=== PATIENT | female | born 1970 | race Caucasian/White ===

== ENCOUNTER → 2019-04-05 | Outpatient (CLI) | payer OTHER, SELFPAY ==
--- NOTE | 2019-04-05 14:30 | EMB_PTH ---
PATIENT: UMU CALDERÓN LOC: [facility] U#:[id number] AGE/SX: 48/F ROOM: RE04/05/[address]: Dr. Ziyad Fuentes MD : [id number] BED: DIS: 04/05/2019 SPEC #: [id number] RECD: 04/05/19 17:23 STATUS: DORINDA JOSE #: [id number] LAWRENCE: 04/05/19 14:[address]: Ziyad Fuentes DEPT: SURGICAL PATHOLOGY RECD BY: Sravan Benitez Tissues: Endometrium, NOS Procedures: Surgery Specimen Level IV HEADER OPERATION: Endometrial biopsy PRE-OP DIAGNOSIS: N95.0 TISSUE SUBMITTED: Endometrial biopsy MICROSCOPIC DIAGNOSIS Endometrial biopsy: Disordered proliferative endometrium. BINTA:nazario 04/07/19 MICROSCOPIC DESCRIPTION Slides are reviewed. GROSS DESCRIPTION Received in fixative is one container labeled with the patient's name and designated EM biopsy. The specimen consists of multiple fragments of beatty hemorrhagic soft tissue that in aggregate measure 2.5 x 0.5 x 0.1 cm. The specimen is totally submitted in one cassette. / BINTA:nazario 04/06/19 TC:5 CPT: 47510
[2019-04-11 17:09] LABS: HPV APTIMA, High Risk Negative (Negative); HPV Reflexed? NOT INDICATED
== END | disposition home or self-care (01) ==
PROVIDERS: Referring Provider Obstetrics & Gynecology; Visit Provider Obstetrics & Gynecology
DX: N85.8 Other specified noninflammatory disorders of uterus (principal); N95.0 Postmenopausal bleeding; Z12.4 Encounter for screening for malignant neoplasm of cervix
CPT/HCPCS: 88175; 88305; G0145

== ENCOUNTER → 2022-12-02 | Outpatient (CLI) | payer OTHER, SELFPAY ==
--- NOTE | 2022-12-02 07:00 | MRI_ITS ---
STUDY: MRI LEFT KNEE REASON FOR EXAM: Female, 52 years old. Left knee medial meniscus tear. TECHNIQUE: Standardized fat and water weighted pulse sequences were obtained in all 3 orthogonal planes. COMPARISON: None. FINDINGS: There is a tear of the posterior medial meniscal root (sagittal PD series 5 images 25-26). There is a small horizontal-oblique undersurface tear of the posterior horn of the medial meniscus (sagittal PD series 5 image 33). There is degenerative arthrosis of the medial femorotibial compartment with joint space narrowing, tiny marginal osteophyte formation, high-grade chondromalacia, and subchondral marrow edema on both sides of the knee. There is a mild grade I MCL sprain with periligamentous edema (coronal T2 series 7 images 13-16). Normal distal semimembranosus, gracilis and semitendinosus tendons. Normal lateral meniscus. Normal hyaline cartilage of the lateral femorotibial compartment. Normal lateral femoral condyle and tibial plateau. Normal proximal tibiofibular articulation. Normal lateral collateral (fibular) ligament. Normal popliteus tendon. Normal biceps femoris tendon. Normal anterior cruciate ligament (ACL). Normal posterior cruciate ligament (PCL). There is moderate to high-grade chondromalacia along the patellar apex and medial patellar facet, with underlying subchondral marrow edema. Congruent patellofemoral articulation. Normal medial and lateral patellar retinaculum. Normal quadriceps tendon. Normal patellar tendon. Normal Hoffa''s fat pad. There is a small to moderate volume joint effusion. There is a small popliteal cyst. There is mild subcutaneous soft tissue edema along the anterior aspect of the knee. There is no acute fracture. MRI/Lower Ext Joint Only (Routine) IMPRESSION: Tear of the posterior medial meniscal root. Small horizontal-oblique undersurface tear of the posterior horn of the medial meniscus. 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 Mild grade I MCL sprain. Small to moderate joint effusion. Small popliteal cyst. Mild subcutaneous soft tissue edema along the anterior aspect of the knee. Electronically Signed: Hussain Javier MD at 12:12 EDT ,
== END | disposition home or self-care (01) ==
PROVIDERS: PCP Nurse Practitioner Family; Referring Provider Chiropractor; Visit Provider Chiropractor
DX: S83.242A Other tear of medial meniscus, current injury, left knee, initial encounter (principal)
CPT/HCPCS: 73721

== ENCOUNTER → 2023-12-07 | Outpatient (CLI) | payer OTHER, SELFPAY ==
--- OUTSIDE RECORDS SUMMARY | 2023-12-07 06:59 | XMS RPT_ITS | CCD ---
Author Organization [facility] Inform ion Partnership [facility] Care Team Providers Care Vamp Throater Name Role Phone Keily Ding LPN Unavailable Keily Ding LPN Unavailable Unavailable Primary Care Provider UnavailADIS Wiley Referring Unavailable ALYCE GAGNON CORRUGATED BOX MACHINE OPERATOR Attending Unavailable ALYCE GAGNON NP Consulting Unavailable ALYCE GAGNON CORRUGATED BOX MACHINE OPERATOR Primary Care Unavailable ALYCE GAGNON CORRUGATED BOX MACHINE OPERATOR Admitting Unavailable PROVIDER, UNKNOWN Consulting Unavailable Unavailable Primary Care Provider Unavailabl e Medications Current Medications Medication Drug Class(es) Dates Sig (Normalized) Sig (Original) predniSONE 10 mg oral tablet (1 source) Start: 08-11-2021 End: 08-23-2021 predniSONE (DELTASONE) 10 mg tablet Indications: Rhus dermatitis Take 6 tabs for 3 days, then 4 tabs for 3 days, then 2 tabs for 3 days then 1 tab for 3 days with food. 39 tablet 0 08/11/2021 08/23/2021 Active Comment on above: Take 6 tabs for 3 da ys, then 4 tabs for 3 days, then 2 tabs for 3 days then 1 tab for 3 days with food. Completed/Discontinued Medications Medication Drug Class(es) Dates Sig (Normalized) Sig (Original) BIO CLEANSE (2 sources) Start: 7 BIO CLEANSE as directed BIO CLEANSE Ramone PALOMINO doxycycline hyclate 100 mg oral capsule (2 sources) Tetracycline-class Drug Start: End: DOXYCYCLINE HYCLATE 100 MG CAPS Take 1 tablet twice daily DOXYCYCLINE HYCLATE [id number] Ramone PALOMINO METHYLPREDNISOLONE (2 sources) Corticosteroid Start: 7 End: 7 MEDROL 4 MG TBPK Take as directed METHYLPREDNISOLONE [id number] Ramone PALOMINO MULTIPLE VITAMINS-MINERALS (2 sources) Start: 7 HAIR SKIN NAILS CAPS as directed MULTIPLE VITAMINS-MINERALS [id number] Ramone PALOMINO MULTIPLE VITAMINS-MINERALS (2 sources) Start: 7 MULTIVITAMIN ADULTS TABS as directed MULTIPLE VITAMINS-MINERALS [id number] Ramone PALOMINO vitamin b 12 0.1 mg oral tablet (2 sources) Vitamin B12 Start: 7 VITAMIN B-12 100 MCG TABS as directed CYANOCOBALAMIN 60322940721 Ramone PALOMINO Problems Active Problems Problem Classification Problem Date Documented Da te Episodic/Chronic Allergic reactions (1 source) Contact dermatitis due to Genus Toxicodendron; Translations: [Unspecified contact dermatitis due to plants, except food] Episodic Other connective tissue disease (1 source) Pain in left finger(s); Translations: [Thumb pain, left] Onset: 09-09-2022 Episodic Other connective tissue disease (1 source) Pain in left thumb; Translations: [Pain in left finger(s)] 09-09-2022 Episodic Past or Other Problems Problem Classification Problem Date Documented Da te Episodic/Chronic Other injuries and conditions due to external causes (2 sources) Insect bite - wound; Translations: [Other injury of unspecified body region] Onset: 09-13-2016 09-13-2016 Episodic Skin and subcutaneous tissue infections (2 sources) Cellulitis; Translations: [Cellulitis, unspecified] Onset: 09-13-2016 09-13-2016 Episodic Results Test Name Value Interpretation Reference Range Facil ity 3D MAMM BILAT SCREENon 11-23 3D MAMM BILAT SCREEN [place] [address] Patient: KANDICE CALDERÓN Phone#: : [phone] Age: 52 Gender: F Pt. Type: Out Account: [id number] Location: 2 Ordering: ALYCE GAGNON Exam Date: 11/23/2022/7:56 Family Phys: Charge Code: [id number] Physician: [place] Order #: [id number] Dose#: PROCEDURE: BILATERAL SCREENING BREAST TOMOSYNTHESIS MAMMOGRAM WITH CAD COMPARISON: [facility], BILAT SCREENING, 02/20/2020, 8:20. [facility], 3D BILAT SCREEN, 10/29/2021, 14:50. INDICATIONS: Screening. BREAST COMPOSITION: Scattered areas fibroglandular density. FINDINGS: DIAGNOSTIC CATEGORY 1--NEGATIVE NO CHANGE FROM COMPARISON ASSESSMENT. RIGHT BREAST: No significant suspicious finding. No significant change has occurred. LEFT BREAST: No significant suspicious finding. No significant change has occurred. RECOMMENDATIONS: ROUTINE MAMMOGRAM AND CLINICAL EVALUATION IN 12 MONTHS. PLEASE NOTE: A NORMAL MAMMOGRAM DOES NOT EXCLUDE THE POSSIBILITY OF BREAST CANCER. A CLINICALLY SUSPICIOUS PALPABLE LUMP SHOULD BE BIOPSIED. THIS FACILITY UTILIZES A REMINDER SYSTEM TO ENSURE THAT ALL PATIENTS RECEIVE REMINDER LETTERS FOR APPOINTMENTS. THIS INCLUDES REMINDERS FOR ROUTINE MAMMOGRAMS, DIAGNOSITC MAMMOGRAMS, OR OTHER BREAST IMAGING INTERVENTIONS WHEN APPROPRIATE. THIS PATIENT WILL BE PLACED IN THE APPROPRIATE REMINDER SYSTEM. Dictated by: Eufemia Kaplan MD on 11/23/2022 at 9:48 Approved by: Eufemia Kaplan MD on 11/23/2022 at 10:06 [facility] CNOVon 09-09-2022 CN Office Visit (UCWSTR ) KANDICE CALDERÓN ([id number]) 1970 F Date Time Provider Department 09/09/22 3:30 PM ADIS LANDRY [facility] During your visit today, we recorded the following information about you: Temperature Pulse Respiration Blood pressure 98.1 degrees 70/minute 21/minute 138/92 Weight 94.3 kg Adis Landry MD 09/09/2022 4:42 PM Signed Patient presents with: Trauma: Smashed left thumb in car door this morning HPI: Left thumb pain: Duration: Smashed left thumb in car door this morning Location: Cut left top of the thumb near the nail, tender distal part of the thumb Character: sharp if squeezed Radiation: No. Aggravating: touching, no pain with ROM Relieving: Associated: bruise in thumb pad, cut Pertinent negatives: Denies numbness Tetanus booster 2020. MEDICATIONS: No prescriptions on file. ALLERGIES: ALLERGIES No Known Allergies VITALS: BP 138/92 Pulse 70 Temp 36.7 ?C (98.1 ?F) Resp 21 Wt 94.3 kg (207 lb 12.8 oz) LMP 08/14/2014 SpO2 100% PE: Pleasant, in no acute distress. Accompanied by her . Right hand dominant. Thumb: left. 3mm and 5mm lacerations 1mm proximal to the proximal nail fold. Mild ecchymosis of the thumb pad without edema. Full IP joint ROM, non-tender to palpation. ASSESSMENT/PLAN: 1. Laceration of left thumb without foreign body without damage to nail, initial encounter - ICD9: 883.0, ICD10: S61.012A (primary diagnosis) 2. Thumb pain, left - ICD9: 729.5, ICD10: M79.645 - XR DIGIT GENERAL 3V FRONTAL/LAT/OBL LEFT - no fracture. Laceration is not in need of or amenable to suture. Wound cleansed with hibiclens and water and dressed with bacitracin on an adhesive bandage. Alluminum foam finger tip splint applied. Follow up with signs of infection such as increasing redness, pain, swelling, purulent drainage, or fever/malaise. Adis Landry MD Referring Provider: SELF [200] Allergies As of Date: 09/09/2022 (No Known Allergies) Date Reviewed: 09/09/2022 Reviewed by: Catherine Torres MA - Fully Assessed Reason for Visit: Trauma [112] Cmt: Smashed left thumb in car door this morning Primary Visit Diagnosis:Laceration of left thumb without foreign body without damage to nail, initial encounter [S61.012A] Other Visit Diagnosis:Thumb pain, left [M79.645] Order(s):XR DIGIT GENERAL 3V FRONTAL/LAT/OBL LEFT [[id number]] Order #: [id number] FUTURE Problem List As Of Date: 09/09/2022 (None) Encounter Status:Closed by ADIS LANDRY on 09/09/[address] [facility] XR DIGIT 3V FRONTAL/LAT/OBL LTon 09-09-2022 XR DIGIT 3V FRONTAL/LAT/OBL LT * * *Final Report* * * DATE OF EXAM: Sep 09 2022 4:09PM WOX [id number] - XR DIGIT 3V FRONTAL/LAT/OBL LT / PROCEDURE REASON: Thumb pain, left * * * * Physician Interpretation * * * * EXAMINATION: XR DIGIT 3V FRONTAL/LAT/OBL LT CLINICAL HISTORY: Pain Technique: XR DIGIT 3V FRONTAL/LAT/OBL LT -- LEFT with 3 views on 3 images Comparison: None RESULT: No acute fracture or dislocation. Left first carpometacarpal joint space narrowing with marginal osteophytes. IMPRESSION: No acute osseous abnormality Fence Erector: PSCB Transcribe Date/Time: Sep 09 2022 4:10P Dictated by : HUMBEROT HENAO MD This examination was interpreted and the report reviewed and electronically signed by: HUMBERTO HENAO MD on Sep 09 2022 4:10PM EST [id number] Normal [facility] XR Finger - left AP and Late ral and obliqueon 09-09-2022 IMPRESSION: No acute osseous abnormality Fence Erector: PSCB Transcribe Date/Time: Sep 09 2022 4:10P Dictated by : HUMBERTO HENAO MD This examination was interpreted and the report reviewed and electronically signed by: HUMBERTO HENAO MD on Sep 09 2022 4:10PM EST DIVISION OF RADIOLOGY * * *Final Report* * * DATE OF EXAM: Sep 09 2022 4:09PM WOX [id number] - XR DIGIT 3V FRONTAL/LAT/OBL LT / PROCEDURE REASON: Thumb pain, left * * * * Physician Interpretation * * * * EXAMINATION: XR DIGIT 3V FRONTAL/LAT/OBL LT CLINICAL HISTORY: Pain Technique: XR DIGIT 3V FRONTAL/LAT/OBL LT -- LEFT with 3 views on 3 images Comparison: None RESULT: No acute fracture or dislocation. Left first carpometacarpal joint space narrowing with marginal osteophytes. DIVISION OF RADIOLOGY Provider, Jeet mena [place] - 09/09/2022 * * *Final Report* * * DATE OF EXAM: Sep 09 2022 4:09PM WOX [id number] - XR DIGIT 3V FRONTAL/LAT/OBL LT / PROCEDURE REASON: Thumb pain, left * * * * Physician Interpretation * * * * EXAMINATION: XR DIGIT 3V FRONTAL/LAT/OBL LT CLINICAL HISTORY: Pain Technique: XR DIGIT 3V FRONTAL/LAT/OBL LT -- LEFT with 3 views on 3 images Comparison: None RESULT: No acute fracture or dislocation. Left first carpometacarpal joint space narrowing with marginal osteophytes. IMPRESSION IMPRESSION: No acute osseous abnormality Fence Erector: NELY Transcribe Date/Time: Sep 09 2022 4:10P Dictated by : HUMBERTO HENAO MD This examination was interpreted and the report reviewed and electronically signed by: HUMBERTO HENAO MD on Sep 09 2022 4:10PM EST [facility] Radiology Study observation (narrative) [facility] XR Finger - left AP and Late ral and obliqueOrdered By: Ccf Provider on 09-09-2022 [facility] ESTRONE BLDon 10-24-2021 ESTRONE 13.5 pg/mL Normal [facility] Comment on above: Order Comment: Speci men Type: BLOOD SPECIMEN Ordering Facility: [facility] Address: [address] [place] [address] Result Comment: REFE RENCE INTERVAL: Estrone by [employer] Machine Mechanic Pre-menopausal: Early follicular <150.0 pg/mL Pre-menopausal: Late follicular 100.0-250.0 pg/mL Pre-menopausal: Luteal <200.0 pg/mL Post-menopausal 3.0-32.0 pg/mL INTERPRETIVE INFORMATION: Estrone by [employer] Machine Mechanic For a complete set of all established reference intervals, refer to bettercodes.org.[employer]/Tests/Pub/[email or web address]. This test was developed and its performance characteristics determined by [facility]. It has not been cleared or approved by the US Food and Drug Administration. This test was performed in a CLIA certified laboratory and is intended for clinical purposes. Performed By: [facility] [address] [place], [place] [id number] Refractive Surgeon: Amanuel Caal MD, PhD Performed By: #### E ST #### [facility] CLIA [id number] [address] [place] [address] #### 94941-1, 8 #### [facility] CLIA [id number] [address] [place] [address] [place] HbA1c (Bld)on 10-24-2021 Average glucose Estimated from glycated hemoglobin (Bld) [Mass/Vol] 91 mg/dL Normal [facility] Comment on above: Order Comment: Specemile men Type: BLOOD SPECIMEN Ordering Facility: [facility] Address: [address] [place] [address] Result Comment: eAG: (Estimated average glucose) is a calculated value from HgbA1c and is correspondence representative of the average blood glucose level in the last 2-3 month period. Performed By: #### E ST #### [facility] IA [id number] [address] [place] [address] #### 06409-9, 8 #### [facility] [place] [id number] [address] [place] [address] [place] HbA1c (Bld) [Mass fraction] 4.8 % Normal 4.3-5.[address] [facility] Comment on above: Order Comment: Juliocesari men Type: BLOOD SPECIMEN Ordering Facility: [facility] Address: [address] [place] [address] Result Comment: Amer [place] Diabetes Association guidelines indicate that patients with HgbA1c in the range 5.7-6.4% are at increased risk for development of diabetes, and intervention by lifestyle modification may be beneficial. HgbA1c greater or equal to 6.5% is considered diagnostic of diabetes. Performed By: #### E ST #### [facility] CLIA [id number] [address] [place] [address] #### 92573-9, 298-8 #### [facility] CLIA [id number] [address] [place] [address] [place] Testost SerPl-mCncon 022 Testosterone [Mass/Vol] 14 ng/dL Normal <[address] [facility] Comment on above: Order Comment: Speci men Type: BLOOD SPECIMEN Ordering Facility: [facility] Address: [address] [place] [address] Performed By: #### E ST #### [facility] CLIA [id number] [address] [place] [address] #### 30389-4, 2986-8 #### [facility] CLIA [id number] [address] [place] [address] [place] Office Visit: UC: Bug bite, not feeling wellon 09-13-2016 Protein mass conc Done [facility] Work Phone: Tobacco smoking status NHIS Never [facility] Work Phone: Tobacco smoking status ALIS Never smoker [facility] Work Phone: Vital Signs Date Time Vital Sign Value Performing Clinician Jodie casarez 08-11-2021 07:25-0400 Body temperature 98.2 [degF] Evelina Bogner PA-C Work Phone: [facility] 08-11-2021 07:25-0400 Body weight 85.73 kg Evelina Bogner PA-C Work Phone: [facility] 08-11-2021 07:25-0400 Diastolic blood pressure 88 mm[Hg] Evelina Bogner PA-C Work Phone: [facility] 08-11-2021 07:25-0400 Heart rate 88 /min Evelina Bogner PA-C Work Phone: [facility] 08-11-2021 07:25-0400 Respiratory rate 16 /min Evelina Bogner PA-C Work Phone: [facility] 08-11-2021 07:25-0400 SaO2% (BldA) [Mass fraction] 99 % Evelina Bogner PA-C Work Phone: [facility] 08-11-2021 07:25-0400 Systolic blood pressure 132 mm[Hg] Evelina Mathews PA-C Work Phone: [facility] 09-13-2016 10:36-0400 BMI (Body Mass Index) 29.05 kg/m2 Keily Ding LPN [facility] Work Phone: 09-13-2016 10:36-0400 Body Temperature 97.7 [degF] Keily Ding LPN [facility] Work Phone: 09-13-2016 10:36-0400 BP Diastolic 84 mm[Hg] Keily Ding LPN [facility] Work Phone: 09-13-2016 10:36-0400 BP Systolic 128 mm[Hg] Keily Ding LPN [facility] Work Phone: 09-13-2016 10:36-0400 Height 167.64 cm Keily Ding LPN [facility] Work Phone: 09-13-2016 10:36-0400 Pulse (Heart Rate) 95 /min Keily Ding LPN [facility] Work Phone: 09-13-2016 10:36-0400 Respiratory Rate 14 /min Keily Ding LPN [facility] Work Phone: 09-13-2016 10:36-0400 Weight 81.65 kg Keily Ding LPN [facility] Work Phone: Encounters Encounter Date Encounter Type Care Provider Facility Start: 11-23-2022 End: 11-23-2022 ambulatory ALYCE SABA [facility] Start: 09-09-2022 End: 09-09-2022 ambulatory ADIS LANDRY Facility:[facility] Start: 09-09-2022 End: 09-09-2022 Subsequent hospital visit by physician [facility] Work Phone: Radiology Comment on above: Thumb pain, left [M7 9.645] Start: 08-11-2021 End: 08-11-2021 Office outpatient new 30 minutes Evelina Mathews PA-C Work Phone: [facility] Comment on above: Rhus dermatitis (Kathy kaylan Dx) Procedures Date Procedure Procedure Detail Performing Clinician Start: 09-09-2022 Radex fingr minimum 2 views Adis Landry MD Work Phone: Plan of Treatment Date Care Activity Detail Author Start: 03-09-2029 Urine microalbumin profile DTaP,Tdap,Td Vaccine (2 - Td or Tdap) [facility] Start: 10-24-2024 Diabetes Screening Diabetes Screening [facility] Start: 01-21-2024 Screening for malignant neoplasm of colon [facility] Start: 10-17-2023 Covid-19 Vaccine () Covid-19 Vaccine () [facility] Start: 10-17-2023 Influenza vaccination Influenza Vaccine (#1) [facility] Start: 07-06-2021 COVID-19 VACCINE (3 - Booster for Pfizer series) COVID-19 VACCINE (3 - Booster for Pfizer series) [facility] Start: 07-03-2019 SHINGRIX VACCINE (1 of 2) SHINGRIX VACCINE (1 of 2) [facility] Start: 09-13-2016 End: 09-13-2016 Appointment Appointment [facility] Work Phone: Start: 2014 COLOGUARD (FIT-DNA) COLOGUARD (FIT-DNA) [facility] Start: 2014 Colonoscopy COLONOSCOPY [facility] Start: 2014 COLORECTAL CANCER SCREENING COLORECTAL CANCER SCREENING [facility] Start: [address] COLONOGRAPHY [facility] Start: 2014 DIABETES SCREEN DIABETES SCREEN [facility] Start: 2014 FECAL OCCULT BLOOD FECAL OCCULT BLOOD [facility] Start: 2014 Lipid panel Lipid Screening [facility] Start: 2014 LIPID SCREEN LIPID SCREEN [facility] Start: 2014 Screening for malignant neoplasm of colon [facility] Start: 2014 SIGMOIDOSCOPY SIGMOIDOSCOPY [facility] Start: 10-16-2009 PAP TESTING PAP TESTING [facility] Start: 2009 Mammography MAMMOGRAM [facility] Start: 2009 Screening for malignant neoplasm of breast Mammogram Screening [facility] Start: 10-17-2007 Screening for malignant neoplasm of cervix Cervical Cancer Screening [facility] Start: 07-03-1999 HPV TESTING HPV TESTING [facility] Start: 1988 Hepatitis B Vaccine (1 of 3 - 19+ 3-dose series) Hepatitis B Vaccine (1 of 3 - 19+ 3-dose series) [facility] Start: 1988 Urine microalbumin profile DTAP,TDAP,TD (1 - Tdap) [facility] Start: 07-03-1987 Anxiety Screening Anxiety Screening [facility] Start: 07-03-1987 Depression Screening Depression Screening [facility] Start: 07-03-1987 HEPATITIS C SCREENING HEPATITIS C SCREENING [facility] Start: 07-03-1987 Hepatitis C screening Hepatitis C Screening [facility] Start: 07-03-1987 HIV SCREENING HIV SCREENING [facility] Start: 07-03-1987 HIV screening HIV Screening [facility] Start: 1981 Adult depression screening assessment DEPRESSION SCREENING [facility] Patient Education INSECT%20BITE% 20OR%20STI NG [facility] Work Phone: Immunizations Immunization Date Immunization Notes Care Provider Verna sun 01-05-2022 influenza virus vacc ine, unspecified formulation Xr Niya Work Phone: [facility] Payers Date Payer Category Payer Unknown [employer] PPO [id number] 2021-Present [phone] [address] [place] [address] PPO [id number] 2021 Unknown [id number] 2021 Unknown [employer] PPO [id number] 2021-Present [phone] [address] [place] [address] PPO [id number] 1970 Unknown [id number] Social History Date Type Detail Facility Start: 09-09-2022 Tobacco smoking stat us NHIS Never smoked tobacco [facility] Work Phone: Start: 08-11-2021 End: 09-09-2022 Alcohol intake Current non-drinker of alcohol (finding) [facility] Start: 1970 Sex Assigned At Not on file [facility] Start: 08-01-2021 End: 08-11-2021 Exposure to SARS-CoV-2 (event) Not sure [facility] Work Phone: Start: 09-09-2022 Tobacco use and exposure Smokeless tobacco non-user [facility] Start: 09-09-2022 History of Social function [facility] Start: 09-09-2022 Tobacco use panel [facility] Progress note 09-09-2022 Note Date & Type Note Facility 09-09-2022 Note HNO ID: [id number] Author: Sybil Lemus RT(R) Service: ? Author Type: Oyster Bed Worker Type: Progress Notes Filed: 09/09/2022 4:07 PM Note Text: Radiology Service Progress Note PATIENT NAME: Kandice Calderón DATE OF SERVICE: September 09, 2022 TIME: 3:58 PM PATIENT IDENTITY VERIFICATION COMPLETED USING TWO (2) IDENTIFIERS: Name and Date of confirmed by patient verbally. FALL SCREENING: Has the patient had 2 falls in the last year or 1 fall with injury or currently using an Ambulatory Assistive Device (Walker, Cane, Wheelchair, Crutches, etc.)? No PATIENT GENDER DATA: Female. status: : No status: NO. PATIENT RELEVANT IMPLANT DATA REVIEWED: Yes RADIOLOGY DEPARTMENT: General X-ray: Exam(s) Completed: Upper Extremity X-Ray(s): Fingers/Thumb, left Thumb PERIPHERAL IV DATA: Not applicable SIGNED BY: RT Jayden(R) September 09, 2022 3:[address] [facility] Progress note 09-09-2022 Note Date & Type Note Facility 09-09-2022 Note HNO ID: [id number] Author: Adis Landry MD Service: ? Author Type: Physician Type: Progress Notes Filed: 09/09/2022 4:42 PM Note Text: Patient presents with: Trauma: Smashed left thumb in car door this morning HPI: Left thumb pain: Duration: Smashed left thumb in car door this morning Location: Cut left top of the thumb near the nail, tender distal part of the thumb Character: sharp if squeezed Radiation: No. Aggravating: touching, no pain with ROM Relieving: Associated: bruise in thumb pad, cut Pertinent negatives: Denies numbness Tetanus booster 2019. MEDICATIONS: No prescriptions on file. ALLERGIES: ALLERGIES No Known Allergies VITALS: BP 138/92 Pulse 70 Temp 36.7 ?C (98.1 ?F) Resp 21 Wt 94.3 kg (207 lb 12.8 oz) LMP 08/14/2014 SpO2 100% PE: Pleasant, in no acute distress. Accompanied by her . Right hand dominant. Thumb: left. 3mm and 5mm lacerations 1mm proximal to the proximal nail fold. Mild ecchymosis of the thumb pad without edema. Full IP joint ROM, non-tender to palpation. ASSESSMENT/PLAN: 1. Laceration of left thumb without foreign body without damage to nail, initial encounter - ICD9: 883.0, ICD10: S61.012A (primary diagnosis) 2. Thumb pain, left - ICD9: 729.5, ICD10: M79.645 - XR DIGIT GENERAL 3V FRONTAL/LAT/OBL LEFT - no fracture. Laceration is not in need of or amenable to suture. Wound cleansed with hibiclens and water and dressed with bacitracin on an adhesive bandage. Alluminum foam finger tip splint applied. Follow up with signs of infection such as increasing redness, pain, swelling, purulent drainage, or fever/malaise. Adis Landry MD [facility] History of Present illness Narrative 08-11-2021 Evelina Mathews PA-C - 08/11/2021 7:27 AM EDT Note Date & Type Note Facility 08-11-2021 History of Presen t illness Narrative 08/11/2021 Patient presents with: Rash: itching x 4 days SUBJECTIVE: This is a 51 year old that is here today for Complaint(s) of rash on face, arms, legs, torso and spreading x 3 days. States she was outside in yard and had known contact with poison oak. Now very itchy. Some around the left eye and face. Denies fever/chills, vision changes, SOB, difficulty breathing, vomiting, diarrhea, No past medical history on file. ALLERGIES Patient has no known allergies. MEDICATIONS No current outpatient medications on file. No current facility-administered medications for this visit. SOCIAL HISTORY Social History Tobacco Use Smoking status: Never Smoker Smokeless tobacco: Never Used Substance Use Topics Alcohol use: No Drug use: No REVIEW OF SYSTEMS See HPI OBJECTIVE: BP 132/88 Pulse 88 Temp 36.8 C (98.2 F) Resp 16 Wt 85.7 kg (189 lb) LMP 08/14/2014 SpO2 99% APPEARANCE alert, in no acute distress, well-hydrated, well nourished. EYES PERRLA, conjunctiva and sclera normal. + surrounding edema of the left eyelid. + erythematous vesicular rash on face, concentrated on left side. EARS External ears normal, canals clear NOSE/SINUS Nares normal. Septum midline. Mucosa normal. No drainage or sinus tenderness. THROAT normal, no erythema SKIN Skin: linear streaks of erythematous papules with/without pruritic small vesicles located on hands, digits, forearms, upper thighs. ASSESSMENT/PLAN: 1. Rhus dermatitis - ICD9: 692.6, ICD10: L25.5 - Oral Steriod tx -Prednisone taper - discussed skin care of rash - follow up if symptoms persist or worsen. - PREDNISONE 10 MG TABLET The patient indicates understanding of these issues and agrees with the plan. Reviewed red flags and when to seek care sooner. Evelina Mathews PA-C documented in this encounter [facility] Evaluation note Note Date & Type Note Facility Evaluation note Diagnosis Rhus dermatitis- Primary Contact dermatitis and other eczema due to plants (except food) documented in this encounter [facility] Evaluation note Note Date & Type Note Facility Evaluation note Diagnosis Thumb pain, left documented in this encounter [facility] Summary Purpose Family History No Family History Records FoundNo Family History Records Found Advance Directives No Advanced Directives Records FoundNo Advanced Directives Records Found Reason for Referral Specialty Diagnoses / Procedures Referred By Contac t Referred To Contact XR IMAGING Diagnoses Thumb pain, left Procedures XR DIGIT GENERAL 3V FRONTAL/LAT/OBL LEFT RADEX FINGR MINIMUM 2 VIEWS Adis Landry MD [address] [place] [address] [place] [address] Referral ID Status Reason Start Date Expiration Date Visits Re quested Visits Authorized [id number] Closed 09/09/2022 02/14/2023 1 1 Additional Source Comments Source Comments (unrecognize d section and content) In the event this informatio n is protected by the Federal Confidentiality of Alcohol and Drug Abuse Patient Records regulations: The Federal rules restrict any use of the information to criminally investigate or prosecute any alcohol or drug abuse [facility] event this information is protected by the Federal Confidentiality of Alcohol and Drug Abuse Patient Records regulations: The Federal rules restrict any use of the information to criminally investigate or prosecute any alcohol or drug abuse patient.[facility] Reason for Visit (unrecogniz ed section and content) Reason Comments Rash itching x 4 days Specialty Diagnoses / Procedures Referred By Contac t Referred To Contact Family Practice / [facility] Diagnoses Poison oak poison oak Procedures OFFICE/OUTPATIENT NEW MODERATE MDM 45-59 MINUTES NEW SAME DAY Self Evelina Mathews PA-C [address] [place] [address] Referral ID Status Reason Start Date Expiration Date Visits Re quested Visits Authorized [id number] Closed 08/11/2021 02/14/2022 1 1 Specialty Diagnoses / Procedures Referred By Contac t Referred To Contact XR IMAGING Diagnoses Thumb pain, left Procedures XR DIGIT GENERAL 3V FRONTAL/LAT/OBL LEFT RADEX FINGR MINIMUM 2 VIEWS Adis Landry MD [address] [place] [address] [place] [address] Referral ID Status Reason Start Date Expiration Date Visits Re quested Visits Authorized [id number] Closed 09/09/2022 02/14/2023 1 1 INFORMATION SOURCE (unrecogn ized section and content) DATE CREATED AUTHOR 09/10/[address] [facility] DATE CREATED AUTHOR AUTHOR'S ORGANIZ ATION 11/24/2022 [facility] FOR RECORDS PERTAINING TO PATIENTS WHO ARE OR HAVE BEEN ENROLLED IN A CHEMICAL DEPENDENCY/SUBSTANCEABUSE PROGRAM, SOME INFORMATION MAY BE OMITTED. This clinical summary was aggregated from multiple sources. Caution should be exercised in using it in the provision of clinical care. This summary normalizes information from multiple sources, and as a consequence, information in this document may materially change the coding, format and clinical context of patient data. In addition, data may be omitted in some cases. CLINICAL DECISIONS SHOULD BE BASED ON THE PRIMARY CLINICAL RECORDS. [employer] [facility]. provides no warranty or guarantee of the accuracy or completeness of information in this document.
--- NOTE | 2023-12-07 07:02 | CT_ITS ---
CT LEFT LOWER EXTREMITY WITH 3-D IMAGING CLINICAL INDICATION: PAIN IN LEFT KNEE -- RAKEL TECHNIQUE: Axial CT images of the left lower extremity was performed without IV contrast material. Coronal and sagittal reformats were provided. The protocol utilizes one or more of the following dose reduction techniques: automated exposure control, adjustment of mA and/or kV according to patient size, and/or use of iterative reconstruction technique. RADIATION DOSAGE (If Supplied By Facility): CTDIvol = ( 18.76 ) mGy, DLP = ( 1385.6 ) mGycm COMPARISON: Left knee MRI dated 12/02/2022. FINDINGS: Bones: There is a 7 mm synovial herniation pit along the anterolateral aspect of the left femoral head-neck junction. There is moderate degenerative arthrosis of the medial femorotibial compartment with joint space narrowing, small marginal osteophyte formation, subchondral sclerosis, and early cyst formation on both sides of the joint. There is a small 5 mm meniscal ossicle at the posterior horn of the medial meniscus. There is a 1.3 x 0.9 cm osteochondral lesion along the medial talar dome. Osseous structures are intact without evidence of fracture or dislocation. No lytic or blastic osseous masses. Soft Tissues: There is a tiny left knee joint effusion. The deep soft tissue structures are unremarkable. The superficial soft tissues are unremarkable without evidence of edema, hematoma, or foreign body. 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 Tiny left knee joint effusion. Electronically Signed: Hussain Javier MD at 14:29 EDT ,
--- NOTE | 2023-12-07 07:03 | EKG12_ITS ---
Test Reason : PREOP Blood Pressure : / mmHG Vent. Rate : 074 BPM Atrial Rate : 074 BPM P-R Int : 144 ms QRS Dur : 072 ms QT Int : 380 ms P-R-T Axes : 029 047 034 degrees QTc Int : 421 ms Normal sinus rhythm Normal ECG Confirmed by NINOSKA MÉNDEZ MD ([id number]), international editorial producer LIV ORELLANA ([id number]) on 12/08/2023 10:10:32 AM Referred By: Terell Cook Confirmed By:NINOSKA MÉNDEZ MD
== END | disposition home or self-care (01) ==
PROVIDERS: PCP Nurse Practitioner Family; Referring Provider Specialist; Visit Provider Specialist
DX: Z01.810 Encounter for preprocedural cardiovascular examination (principal); M17.12 Unilateral primary osteoarthritis, left knee; M25.562 Pain in left knee
CPT/HCPCS: 73700; 93005

== ENCOUNTER → 2023-12-15 | Outpatient (CLI) | payer OTHER, SELFPAY ==
--- OUTSIDE RECORDS SUMMARY | 2023-12-15 06:59 | XMS RPT_ITS | CCD ---
Author Organization [facility] Inform ion Partnership [facility] Care Team Providers Care Sanitation Tank Washer Name Role Phone Keily Ding LPN Unavailable [phone] Keily Ding LPN Unavailable Unavailable Primary Care Provider UnavailADIS Wiley Referring Unavailable ALYCE GAGNON CONTENT ENGINEER Attending Unavailable ALYCE GAGNON NP Consulting Unavailable ALYCE GAGNON CONTENT ENGINEER Primary Care Unavailable ALYCE GAGNON CONTENT ENGINEER Admitting Unavailable PROVIDER, UNKNOWN Consulting Unavailable Unavailable [...] Take 1 tablet twice daily DOXYCYCLINE HYCLATE [id number] Ramone PALOMINO METHYLPREDNISOLONE (2 sources) Corticosteroid Start: 7 End: 7 MEDROL 4 MG TBPK Take as directed METHYLPREDNISOLONE [id number] Ramone PALOMINO MULTIPLE VITAMINS-MINERALS (2 sources) Start: 7 HAIR SKIN NAILS CAPS as directed MULTIPLE VITAMINS-MINERALS [id number] Ramone PALOMINO MULTIPLE VITAMINS-MINERALS (2 sources) Start: 7 MULTIVITAMIN ADULTS TABS as directed MULTIPLE VITAMINS-MINERALS [id number] Ramone PALOMINO vitamin b 12 0.1 mg oral tablet (2 sources) Vitamin B12 Start: 7 VITAMIN B-12 100 MCG TABS as directed CYANOCOBALAMIN 40378047892 Ramone PALOMINO Problems Active Problems Problem Classification [...] BILAT SCREENon 11-23 3D MAMM BILAT SCREEN [place] [address] Patient: KANDICE CALDERÓN Phone#: : 1970 Age: 52 Gender: F Pt. Type: Out Account: [id number] Location: 2 Ordering: ALYCE GAGNON Exam Date: 11/23/2022/7:56 Family Phys: Charge Code: 080348 Physician: Price Order #: [id number] Dose#: PROCEDURE: BILATERAL SCREENING BREAST TOMOSYNTHESIS MAMMOGRAM WITH CAD COMPARISON: [facility], BILAT SCREENING, 02/20/2020, 8:20. [facility], 3D BILAT SCREEN, 10/29/2021, 14:50. INDICATIONS: Screening. [...] Eufemia Kaplan MD on 11/23/2022 at 10:06 [facility] CNOVon 09-09-2022 CN Office Visit (UCWSTR ) KANDICE CALDERÓN ([id number]) 1970 F Date Time Provider Department 09/09/22 3:30 PM [facility] During your visit today, we recorded the [...] [M79.645] Order(s):XR DIGIT GENERAL 3V FRONTAL/LAT/OBL LEFT [[id number]] Order #: [id number] FUTURE Problem List As Of Date: 09/09/2022 (None) Encounter Status:Closed by ADIS LANDRY on 09/09/22 Normal [facility] XR DIGIT 3V FRONTAL/LAT/OBL LTon 09-09-2022 XR [...] marginal osteophytes. IMPRESSION: No acute osseous abnormality Jewelry Casting Model Maker Apprentice: PSCB Transcribe Date/Time: Sep 09 2022 4:10P Dictated by : HUMBERTO HENAO MD This examination was interpreted and the report reviewed and electronically signed by: HUMBERTO HENAO MD on Sep 09 2022 4:10PM EST [id number] Normal [facility] XR Finger - left AP and Late ral and obliqueon 09-09-2022 IMPRESSION: No acute osseous abnormality Jewelry Casting Model Maker Apprentice: PSCB Transcribe Date/Time: Sep 09 2022 4:10P [...] osteophytes. DIVISION OF RADIOLOGY Provider, Jeet mena [place] - 09/09/2022 * * *Final Report* * [...] osteophytes. IMPRESSION IMPRESSION: No acute osseous abnormality Jewelry Casting Model Maker Apprentice: NELY Transcribe Date/Time: Sep 09 2022 4:10P Dictated by : HUMBERTO HENAO MD This examination was interpreted and the report reviewed and electronically signed by: HUMBERTO HENAO MD on Sep 09 2022 4:10PM EST [facility] Radiology Study observation (narrative) [facility] XR Finger - left AP and Late ral and obliqueOrdered By: Ccf Provider on 09-09-2022 [facility] ESTRONE BLDon 10-24-2021 ESTRONE 13.5 pg/mL Normal [facility] Comment on above: Order Comment: Speci men Type: BLOOD SPECIMEN Ordering Facility: [facility] Address: [address] [place] [address] Result Comment: REFE RENCE INTERVAL: Estrone by Funeral Pre Arrangement Specialist Pre-menopausal: Early follicular <150.0 pg/mL Pre-menopausal: Late follicular 100.0-250.0 pg/mL Pre-menopausal: Luteal <200.0 pg/mL Post-menopausal 3.0-32.0 pg/mL INTERPRETIVE INFORMATION: Estrone by Funeral Pre Arrangement Specialist For a complete set of all established reference intervals, refer to [email or web address]. This test was developed and its performance characteristics determined by [facility] [place]. It has not been cleared or approved by the US Food and Drug Administration. This test was performed in a CLIA certified laboratory and is intended for clinical purposes. Performed By: [facility] [address] [place], [place] [id number] Cocoa Room Operator: Amanuel Caal MD, PhD Performed By: #### E ST #### [facility] CLIA [id number] [address] [place] [address] #### 29349-1, 8 #### [facility] CLIA [id number] [address] [place] [address] [place] HbA1c (Bld)on 10-24-2021 Average glucose Estimated from glycated hemoglobin (Bld) [Mass/Vol] 91 mg/dL Normal [facility] Comment on above: Order Comment: Specemile men Type: BLOOD SPECIMEN Ordering Facility: [facility] Address: [address] [place] [address] Result Comment: eAG: (Estimated average glucose) is a calculated value from HgbA1c and is cash posting representative of the average blood glucose level in the last 2-3 month period. Performed By: #### E ST #### [facility] IA [id number] [address] [place] [address] #### 52217-8, 8 #### [facility] [place] [id number] [address] [place] [address] [place] HbA1c (Bld) [Mass fraction] 4.8 % Normal 4.3-5.6 [facility] Comment on above: Order Comment: Juliocesari men Type: BLOOD SPECIMEN Ordering Facility: [facility] Address: [address] [place] [address] Result Comment: Amer ican Diabetes Association guidelines indicate that patients with HgbA1c in the range 5.7-6.4% are at increased risk for development of diabetes, and intervention by lifestyle modification may be beneficial. HgbA1c greater or equal to 6.5% is considered diagnostic of diabetes. Performed By: #### E ST #### [facility] CLIA [id number] [address] [place] [address] #### 49741-8, 298-8 #### [facility] CLIA [id number] [address] [place] [address] [place] Testost SerPl-mCncon 022 Testosterone [Mass/Vol] 14 ng/dL Normal <40 [facility] Comment on above: Order Comment: Speci men Type: BLOOD SPECIMEN Ordering Facility: [facility] Address: [address] [place] [address] Performed By: #### E ST #### [facility] CLIA [id number] [address] [place] [address] #### 09545-7, 2986-8 #### [facility] CLIA [id number] [address] [place] [address] [place] Office Visit: UC: Bug bite, not feeling wellon 09-13-2016 Protein mass conc Done [facility] Work Phone: Tobacco smoking status NHIS Never [facility] Work Phone: Tobacco smoking status NCIS Never smoker [facility] Work Phone: Vital Signs Date Time Vital Sign Value Performing Clinician Jodie casarez 08-11-2021 07:25-0400 Body temperature 98.2 [degF] Evelina Bogner PA-C Work Phone: [facility] 08-11-2021 07:25-0400 Body weight 85.73 kg Evelina Bogner PA-C Work Phone: [facility] 08-11-2021 07:25-0400 Diastolic blood pressure 88 mm[Hg] Evelina Bogner PA-C Work Phone: [facility] 08-11-2021 07:25-0400 Heart rate 88 /min Evelina Bogner PA-C Work Phone: [facility] 08-11-2021 07:25-0400 Respiratory rate 16 /min Evelina Bogner PA-C Work Phone: [facility] 08-11-2021 07:25-0400 SaO2% (BldA) [Mass fraction] 99 % Evelina Bogner PA-C Work Phone: [facility] 08-11-2021 07:25-0400 Systolic blood pressure 132 mm[Hg] Evelina Mathews PA-C Work Phone: [facility] 09-13-2016 10:36-0400 BMI (Body Mass Index) 29.05 kg/m2 Keily Ding LPN [facility] Work Phone: 09-13-2016 10:36-0400 Body Temperature 97.7 [degF] Keily Ding LPN [facility] Work Phone: 09-13-2016 10:36-0400 BP Diastolic 84 mm[Hg] Keily Ding LPN [facility] Work Phone: 09-13-2016 10:36-0400 BP Systolic 128 mm[Hg] Keily Ding LPN [facility] Work Phone: 09-13-2016 10:36-0400 Height 167.64 cm Keily Ding LPN [facility] Work Phone: 09-13-2016 10:36-0400 Pulse (Heart Rate) 95 /min Keily Ding LPN [facility] Work Phone: 09-13-2016 10:36-0400 Respiratory Rate 14 /min Keily Ding LPN [facility] Work Phone: 09-13-2016 10:36-0400 Weight 81.65 kg Keily Ding LPN [facility] Work Phone: Encounters Encounter Date Encounter Type Care Provider Facility Start: 11-23-2022 End: 11-23-2022 ambulatory ALYCE SABA [facility] Start: 09-09-2022 End: 09-09-2022 ambulatory ADIS LANDRY Facility:[facility] Start: 09-09-2022 End: 09-09-2022 Subsequent hospital visit by physician [facility] Work Phone: Radiology Comment on above: Thumb pain, left [M7 9.645] Start: 08-11-2021 End: 08-11-2021 Office outpatient new 30 minutes Evelina Mathews PA-C Work Phone: [facility] Comment on above: Rhus dermatitis (Kathy kaylan Dx) Procedures Date Procedure Procedure Detail Performing Clinician Start: 09-09-2022 Radex fingr minimum 2 views Adis Landry MD Work Phone: Plan of Treatment Date Care Activity Detail Author Start: 03-09-2029 Urine microalbumin profile DTaP,Tdap,Td Vaccine (2 - Td or Tdap) [facility] Start: 10-24-2024 Diabetes Screening Diabetes Screening [facility] Start: 01-21-2024 Screening for malignant neoplasm of colon [facility] Start: 10-17-2023 Covid-19 Vaccine () Covid-19 Vaccine () [facility] Start: 10-17-2023 Influenza vaccination Influenza Vaccine (#1) [facility] Start: 07-06-2021 COVID-19 VACCINE (3 - Booster for Pfizer series) COVID-19 VACCINE (3 - Booster for Pfizer series) [facility] Start: 07-03-2019 SHINGRIX VACCINE (1 of 2) SHINGRIX VACCINE (1 of 2) [facility] Start: 09-13-2016 End: 09-13-2016 Appointment Appointment [facility] Work Phone: Start: 2014 COLOGUARD (FIT-DNA) COLOGUARD (FIT-DNA) [facility] Start: 2014 Colonoscopy COLONOSCOPY [facility] Start: 2014 COLORECTAL CANCER SCREENING COLORECTAL CANCER SCREENING [facility] Start: [address] COLONOGRAPHY [facility] Start: 2014 DIABETES SCREEN DIABETES SCREEN [facility] Start: 2014 FECAL OCCULT BLOOD FECAL OCCULT BLOOD [facility] Start: 2014 Lipid panel Lipid Screening [facility] Start: 2014 LIPID SCREEN LIPID SCREEN [facility] Start: 2014 Screening for malignant neoplasm of colon [facility] Start: 2014 SIGMOIDOSCOPY SIGMOIDOSCOPY [facility] Start: 10-16-2009 PAP TESTING PAP TESTING [facility] Start: 2009 Mammography MAMMOGRAM [facility] Start: 2009 Screening for malignant neoplasm of breast Mammogram Screening [facility] Start: 10-17-2007 Screening for malignant neoplasm of cervix Cervical Cancer Screening [facility] Start: 07-03-1999 HPV TESTING HPV TESTING [facility] Start: 1988 Hepatitis B Vaccine (1 of 3 - 19+ 3-dose series) Hepatitis B Vaccine (1 of 3 - 19+ 3-dose series) [facility] Start: 1988 Urine microalbumin profile DTAP,TDAP,TD (1 - Tdap) [facility] Start: 07-03-1987 Anxiety Screening Anxiety Screening [facility] Start: 07-03-1987 Depression Screening Depression Screening [facility] Start: 07-03-1987 HEPATITIS C SCREENING HEPATITIS C SCREENING [facility] Start: 07-03-1987 Hepatitis C screening Hepatitis C Screening [facility] Start: 07-03-1987 HIV SCREENING HIV SCREENING [facility] Start: 07-03-1987 HIV screening HIV Screening [facility] Start: 1981 Adult depression screening assessment DEPRESSION SCREENING [facility] Patient Education INSECT%20BITE% 20OR%20STI NG [facility] Work Phone: Immunizations Immunization Date Immunization Notes Care Provider Verna sun 01-05-2022 influenza virus vacc ine, unspecified formulation [facility] Work Phone: [facility] Payers Date Payer Category Payer Unknown [employer] [id number] 2021-Present [phone] [address] [place] [address] PPO [id number] 2021 Unknown [id number] 2021 Unknown [employer] PPO [id number] 2021-Present [phone] [address] [place] [address] PPO [id number] 1970 Unknown [id number] Social History Date Type Detail Facility Start: 09-09-2022 Tobacco smoking stat us NHIS Never smoked tobacco [facility] Work Phone: Start: 08-11-2021 End: 09-09-2022 Alcohol intake Current non-drinker of alcohol (finding) [facility] Start: 1970 Sex Assigned At Not on file [facility] Start: 08-01-2021 End: 08-11-2021 Exposure to SARS-CoV-2 (event) Not sure [facility] Work Phone: Start: 09-09-2022 Tobacco use and exposure Smokeless tobacco non-user [facility] Start: 09-09-2022 History of Social function [facility] Start: 09-09-2022 Tobacco use panel [facility] Progress note 09-09-2022 Note Date & Type Note Facility 09-09-2022 Note HNO ID: [id number] Author: Sybil Lemus RT(R) Service: ? Author Type: Screen Printing Machine Loader Unloader Type: Progress Notes Filed: 09/09/2022 4:07 PM [...] RT Jayden(R) September 09, 2022 3:58 PM [facility] Progress note 09-09-2022 Note Date & Type Note Facility 09-09-2022 Note HNO ID: [id number] Author: Adis Landry MD Service: ? Author [...] purulent drainage, or fever/malaise. Adis Landry MD [facility] History of Present illness Narrative 08-11-2021 Evelina [...] Evelina Mathews PA-C documented in this encounter [facility] Evaluation note Note Date & Type Note Facility Evaluation note Diagnosis Rhus dermatitis- Primary Contact dermatitis and other eczema due to plants (except food) documented in this encounter [facility] Evaluation note Note Date & Type Note Facility Evaluation note Diagnosis Thumb pain, left documented in this encounter [facility] Summary Purpose Family History No Family History Records FoundNo Family History Records Found Advance Directives No Advanced Directives Records FoundNo Advanced Directives Records Found Reason for Referral Specialty Diagnoses / Procedures Referred By Contac t Referred To Contact XR IMAGING Diagnoses Thumb pain, left Procedures XR DIGIT GENERAL 3V FRONTAL/LAT/OBL LEFT RADEX FINGR MINIMUM 2 VIEWS Adis Landry MD [address] [place] [address] [place] [address] Referral ID Status Reason Start Date Expiration Date Visits Re quested Visits Authorized [id number] Closed 09/09/2022 02/14/2023 1 1 Additional Source Comments Source Comments (unrecognize d section and content) In the event this informatio n is protected by the Federal Confidentiality of Alcohol and Drug Abuse Patient Records regulations: The Federal rules restrict any use of the information to criminally investigate or prosecute any alcohol or drug abuse patient.[facility] event this information is protected by the Federal Confidentiality of Alcohol and Drug Abuse Patient Records regulations: The Federal rules restrict any use of the information to criminally investigate or prosecute any alcohol or drug abuse patient.[facility] Reason for Visit (unrecogniz ed section and content) Reason Comments Rash itching x 4 days Specialty Diagnoses / Procedures Referred By Contac t Referred To Contact Family Practice / [facility] Diagnoses Poison oak poison oak Procedures OFFICE/OUTPATIENT NEW MODERATE MDM 45-59 MINUTES NEW SAME DAY Self Evelina Mathews PA-C [address] [place] [address] Referral ID Status Reason Start Date Expiration Date Visits Re quested Visits Authorized [id number] Closed 08/11/2021 02/14/2022 1 1 Specialty Diagnoses / Procedures Referred By Contac t Referred To Contact XR IMAGING Diagnoses Thumb pain, left Procedures XR DIGIT GENERAL 3V FRONTAL/LAT/OBL LEFT RADEX FINGR MINIMUM 2 VIEWS Adis Landry MD [address] [place] [address] [place] [address] Referral ID Status Reason Start Date Expiration Date Visits Re quested Visits Authorized [id number] Closed 09/09/2022 02/14/2023 1 1 INFORMATION SOURCE (unrecogn ized section and content) DATE CREATED AUTHOR 09/10/2022 [facility] DATE CREATED AUTHOR AUTHOR'S ORGANIZ ATION 11/24/2022 [facility] FOR RECORDS PERTAINING TO PATIENTS WHO ARE [...] BE BASED ON THE PRIMARY CLINICAL RECORDS. [employer] [facility]. provides no warranty or guarantee of the accuracy or completeness of information in this document.
[2023-12-15 07:28] LABS: Absolute Lymphocyte Count 1.65 X10^3/uL (0.83-4.51); Absolute Neutrophil Count 2.9 X10^3/uL (2.0-7.7); Basophil# 0.03 X10^3/uL; Basophil% 0.6 % (0-1); Eosinophil# 0.12 X10^3/uL; Eosinophils% 2.4 % (0-5); Hematocrit 40.6 % (37-47); Hemoglobin 12.8 g/dL (12.0-15.0); Lymphocyte # 1.65 X10^3/ul (0.83-4.51); Lymphocyte % 32.4 % (19-41); Mean Corp Hgb Conc 31.5 g/dL (32-36); Mean Corpuscular Hgb 28.5 pg (27.0-32.0); Mean Corpuscular Volume 90.4 fL (81-99); Mean Platelet Vol. 9.5 fl (6.2-12.0); Monocyte% 7.9 % (0-10); NRBC Flagged by Analyzer 0 % (0-5); Neutrophil # 2.88 X10^3/uL (2.7-7.7); Neutrophil % 56.5 % (47-70); Platelet Count 311 K/mm3 (150-450); RBC Distribution Width CV 13.1 % (11.6-14.6); RBC Distribution Width SD 43.5 fl (35.1-43.9); Red Blood Count 4.49 M/mm3 (4.2-5.4); White Blood Count 5.1 K/mm3 (4.4-11.0)
[2023-12-15 08:33] LABS: Anion Gap 5 (5-15); BUN 21 mg/dL (7-18); BUN/Creat Ratio 28.9 RATIO (10-20); Calcium,Total 9.3 mg/dL (8.5-10.1); Chloride 109 mmol/L (98-107); Creatinine, Serum 0.73 mg/dL (0.55-1.02); EST Glomerular Filtration Rate 89 mL/min (>60); Est Glom Filt Rate - Afr Amer 107 mL/min (>60); Glucose 86 mg/dL (74-106); Sodium Level 141 mmol/L (136-145)
== END | disposition home or self-care (01) ==
LOC: LAB.FUTURE 06:57 → LAB 06:59
PROVIDERS: PCP Nurse Practitioner Family; Referring Provider Specialist; Visit Provider Specialist
DX: Z01.818 Encounter for other preprocedural examination (principal)
CPT/HCPCS: 36415; 80048; 82040; 85025